=== PATIENT | female | born 1995 | race Caucasian/White ===

== ENCOUNTER 2019-08-12 08:25 | Emergency (ER) | payer SELFPAY ==
[2019-08-12 08:39] VITALS: BP 111/69
--- NOTE | 2019-08-12 08:43 | UC ---
Throat Pain/Nasal Sae HPI - HPI Summary HPI Summary: 24 year old female with no PMH, recently delivered 7 months ago, no menses since, no chance of , presents with throat pain, fever, swollen glands since . Fever max 102. Decreased appetite, mild nausea. no cough, no SOB. + body aches, chills. NO improvement since . past 3 days noted sinus congestion/ tenderness. - History of Current Complaint Chief Complaint: UCRespiratory Stated Complaint: THROAT PAIN Time Seen by Provider: 08/12/19 08:33 Hx Obtained From: Patient Hx Last Menstrual Period: pt gave 7 months ago, irregular ?: No Severity: Mild Pain Intensity: 3 Pain Scale Used: 0-10 Numeric Cough: None Associated Signs & Symptoms: Positive: Dysphagia, Hoarseness, Sinus Discomfort, Nasal Discharge, Fever. Negative: FB Sensation, Drooling, Wheezing, Vomiting, Rash - Allergies/Home Medications Allergies/Adverse Reactions: Allergies Allergy/AdvReac Type Severity Reaction Status Date / Time Penicillins Allergy Unknown Verified 08/12/19 08:39 Reaction Details Home Medications: Home Medications Ibuprofen TAB* [Motrin TAB*] 600 mg PO Q6H PRN 07/14/15 [History Confirmed 08/11] Acetaminophen [Athenol] 650 mg PO ONCE PRN 08/12/19 [History Confirmed 08/12/19] Amoxicillin PO (*) [Amoxicillin 875 MG (*)] 875 mg PO BID #20 tab 08/12/19 [Rx] Guaifenesin/Dextromethorphan [Robitussin Cough-Chest Dm Liq] 1 dose PO ONCE PRN 08/12/19 [History Confirmed 08/12/19] Vit37/Iron/Folic Acid [Prenata Chewable Tablet] 1 tab PO DAILY [History Confirmed 08/12/19] PMH/Surg Hx/FS Hx/Imm Hx Previously Healthy: Yes - Surgical History Surgical History: Yes Surgery Procedure, Year, and Place: Oral surgery - 2013 - Family History Known Family History: Positive: Unknown, Non-Contributory - Social History Occupation: Works From/At Home Alcohol Use: None Substance Use Type: None Smoking Status (MU): Never Smoked Tobacco Review of Systems All Other Systems Reviewed And Are Negative: Yes Constitutional: Positive: Fever, Chills, Fatigue ENT: Positive: Sore Throat, Nasal Discharge, Sinus Congestion, Sinus Pain/ Tenderness Respiratory: Negative: Shortness Of Breath, Cough Cardiovascular: Negative: Negative Motor: Positive: Negative Neurovascular: Positive: Negative Neurological/Mental Status: Positive: Negative Psychological: Positive: Negative Is Patient Immunocompromised?: No Physical Exam Triage Information Reviewed: Yes Appearance: No Pain Distress, Well-Nourished, Ill-Appearing - mild Vital Signs: Initial Vital Signs Temp 98.6 F 08/12/19 08:33 Pulse 77 08/12/19 08:33 Resp 18 08/12/19 08:33 BP 111/69 08/12/19 08:33 Pulse Ox 99 08/12/19 08:33 Vital Signs Reviewed: Yes Eyes: Positive: Conjunctiva Clear ENT: Positive: Hearing grossly normal, Pharyngeal erythema - minimal b/l, TMs normal, Sinus tenderness - R sided frontal/ max, Uvula midline. Negative: TM bulging, TM dull, TM red, Tonsillar swelling, Tonsillar exudate Neck: Positive: Supple, No Lymphadenopathy, Tenderness @ - R ant cervical pain Respiratory: Positive: Chest non-tender, Lungs clear, Normal breath sounds, No respiratory distress, No accessory muscle use. Negative: Respiratory distress, Crackles, Rhonchi, Stridor, Wheezing Cardiovascular: Positive: RRR, No Murmur Neurological Exam: Normal Neurological: Positive: Alert Psychological Exam: Normal Skin: Negative: Rashes Throat Pain/Nasal Course/Dx - Course Course Of Treatment: Rapid Strep- negative. 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 - - Continue over the counter medications for symptoms. - Go to ER with increased fever > 102 no resolved by medications, increased pain , difficulty breathing/ shortness of breath, difficulty swallowing - Work Note given - Differential Dx/Diagnosis Differential Diagnosis/HQI/PQRI: Pharyngitis, Sinusitis, Tonsillitis, URI Provider Diagnosis: Sinusitis Discharge ED - Sign-Out/Discharge Documenting (check all that apply): Patient Departure All imaging exams completed and their final reports reviewed: No Studies - Discharge Plan Condition: Good Disposition: HOME Prescriptions: Amoxicillin PO (*) [Amoxicillin 875 MG (*)] 875 mg PO BID #20 tab Patient Education Materials: Sinusitis (ED) Forms: *Work Release Referrals: Non Staff,Doctor [Primary Care Provider] - Additional Instructions: Rapid Strep- negative. 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 - - Continue over the counter medications for symptoms. - Go to ER with increased fever > 102 no resolved by medications, increased pain , difficulty breathing/ shortness of breath, difficulty swallowing - Work Note given - Billing Disposition and Condition Condition: GOOD Disposition: Home
== END 2019-08-12 09:14 | disposition home or self-care (01) ==
LOC: UCEAST 08:25
DX: J32.9 Chronic sinusitis, unspecified (principal); R11.0 Nausea; R53.83 Other fatigue; Z88.0 Allergy status to penicillin
CPT/HCPCS: 87651; 99202; G0463

== ENCOUNTER 2023-09-15 05:52 | Inpatient (IN) ==
[2023-09-15] MEDS ORDERED: Glycerin ADULT 2.4 gm SUPP PR PRN (07:06)
[2023-09-15] MEDS ORDERED: Oxytocin 10 UNITS/ML 1 ML VIAL IM PRN (07:06)
[2023-09-15] MEDS ORDERED: Lactated Ringers 1000 ml BAG 1,000 ML IV SCH (08:00)
[2023-09-15 08:53] LABS: Urine Benzodiazepine Screen None Detected (None Detect); Urine Cannabinoids Screen None Detected (None Detect); Urine Opiates Screen None Detected (None Detect)
[2023-09-15] MEDS: Witch Hazel PAD JAR TOPICAL PRN (09:37)
[2023-09-15] MEDS: Dibucaine 1% OINT 28.35 GM TUBE PR PRN (09:37)
[2023-09-16 07:27] LABS: ABS Eosinophils 0.1 10^3/uL (0.0-0.5); ABS Lymphocytes 1.4 10^3/uL (1.0-4.8); ABS Monocytes 0.5 10^3/uL (0.0-0.9); ABS Neutrophils 6.9 10^3/uL (1.5-7.6); Eosinophil % 0.6 %; Hematocrit 30.1 % (35-45); Hemoglobin 10.2 g/dL (11.5-14.3); Lymphocyte % 15.5 %; Mean Corpuscular Hemoglobin 29.3 pg (27-33); Mean Corpuscular Volume 86.2 fL (80-97); Mean Platelet Volume 8.9 fL (7.5-11.2); Platelet Count 168 10^3/uL (150-450); Red Blood Count 3.49 10^6/uL (3.63-4.92); Red Cell Distribution Width 14.7 % (12-17); White Blood Count 8.8 10^3/uL (3.8-11.8)
[2023-09-16] MEDS: Lidocaine 1% VIAL 10 MG/ML 30 ML VIAL ONE (07:34)
[2023-09-16 08:50] VITALS: BP 125/74
== END 2023-09-16 11:20 | disposition home or self-care (01) | DRG 560 ==
LOC: MCHOBOUT 05:52 → MCHOB 05:52
PROVIDERS: ADMIT Registered Nurse; ATTEND Registered Nurse